=== PATIENT | female | born 1945 | race Caucasian/White ===

== ENCOUNTER 2016-09-01 17:30 | Emergency (ER) | payer OTHER, MEDICARE ==
[~2016-09-01] VITALS: Ht 152.4 cm; Wt 45.4 kg
[~2016-09-01 17:30] MED LIST: ALBUTEROL 3 ML3 ML INH; ALBUTEROL0.09 MG/A1 INH; ALENDRONATE SOD70 M2; AMBIEN 10MG10 MG PO; AMOX-CLAV 875-1 EACH PO; ATROVENT 0.02%2.5 ML INH; AUGMENTIN 875875 MG PO; BENZONATATE100 M1 PO; BENZONATATE100 MG PO; BUTALB-ACETAMI1 EACH PO; CALCIUM + D SO1 EACH PO; CENTRUM SILVER1 EAC3 PO; CLONAZEPAM2 M2 PO; CLONAZEPAM2 MG PO; COLACE100 MG PO; COUMADIN 3 MG TA3 MG PO; COUMADIN 5 MG TA5 MG PO; COUMADIN 6 MG TA6 MG PO; COUMADIN4 M1 PO; COUMADIN5 M2 PO; COUMADIN6 M1 PO; CYCLOBENZAPRINE10 M1 PO; DILAUDID2 M1 PO; FIORICET 325 MG1 TAB PO; FLUTICASONE PRO16 GM NASB; HYDROCODON-ACE1 EAC3 PO; HYDROCODONE/ACE1 TA2 PO; HYDROXYZINE HCL25 M2 PO; HYDROXYZINE HCL50 M1; HYDROXYZINE HCL50 M1 PO; IMITREX50 MG PO; K-TAB10 MEQ PO; KLONOPIN 1MG TAB1 MG PO; KLONOPIN0.5 MG PO; KLONOPIN1 M1 PO; LASIX20 MG PO; LEVOCETIRIZINE D5 M1 PO; LEXAPRO20 M1 PO; MEDROL4 M2 PO; MELATONIN 3 MG-1 TAB PO; MONTELUKAST SOD10 M1 PO; MOXIFLOXACIN H400 M1 PO; Mycostatin Susp PO; NARCAN4 MG NAS; NEXIUM 40MG40 MG PO; NORCO 10-325 T1 EACH PO; NORCO 7.5-3251 EACH PO; ONDANSETRON HCL4 MG PO; OXYCONTIN (MONO40 MG PO; OXYCONTIN15 M1 PO; OXYCONTIN20 M1 PO; OXYCONTIN30 MG PO; OXYCONTIN40 M1 PO; OXYCONTIN40 MG PO; PANTOPRAZOLE SO40 M1 PO; PERCOCET 325 MG1 TA2 PO; PHENERGAN PO; PHENERGAN12.5 M1 PO; PHENERGAN12.5 MG PR; POTASSIUM CHLO10 MEQ PO; PREDNISONE 20MG20 MG PO; PREDNISONE10 M2 PO; PREDNISONE10 MG PO; PRILOSEC 20MG C20 MG PO; PRILOSEC40 MG PO; PRISTIQ ER50 MG PO; PROBIOTIC FORMU1 CAP PO; PROBIOTIC1 EACH PO; PROMETHAZINE HC25 M3 PO; PROTONIX40 M3 PO; Q-TUSSIN100 MG/5 M PO; REGLAN10 MG PO; ROXICODONE30 MG PO; ROXICODONE5 MG PO; Robitussin PO; SENOKOT8.6 MG PO; SEROQUEL50 MG PO; SILENOR6 MG PO; SPIRIVA18 MCG INH; SYMBICORT 160/41 PUF INH; SYMBICORT 16010.2 GM INH; SYMBICORT1 AE1 INH; TRAMADOL HCL50 M1 PO; TRAZODONE HCL150 M1 PO; TRAZODONE HCL50 M1 PO; TRAZODONE100 MG PO; TRAZODONE150 MG PO; TRIAMCINOLONE A80 GM TOP; TYLENOL ARTHRI650 MG PO; TYLENOL XSTR500 MG PO; VITAMIN D31000 UNI1 PO; WARFARIN SODIUM1 M1 PO; ZITHROMAX250 M2 PO; ZOFRAN ODT4 MG PO; ZOLPIDEM TART10 MG PO; ZOLPIDEM TARTRAT5 MG PO; ZYVOX600 M1 PO; [UNRECOGNIZED DRUG - OTHER] PO
--- NOTE | 2016-09-01 17:37 | ED GENERAL ADULT ---
History of Present Illness General Chief Complaint: General Adult Stated Complaint: WITHDRAWAL Source: patient Exam Limitations: poor historian Reconcile Medications Budesonide/Formoterol Fumarate (Symbicort 160-4.5 Mcg Inhaler) 160 MCG-4.5 MCG/ ACTUATION HFA.AER.AD 2 PUF INH BID PRN COPD 2 PUFFS TWICE A DAY Buprenorphine HCl/Naloxone HCl (Suboxone 8 MG-2 MG Sl Film) 8 MG-2 MG FILM 1 STR SL DAILY PRN WITHDRAWAL SYMPTOMS SEVEN...[id number] Calcium Carb/Vitamin D3/Vit K1 (Calcium + D Soft Chewable Tab) (Unknown Strength ) TAB.CHEW (Unknown Dose) PO DAILY SUPPLEMENT (Reported) Cholecalciferol (Vitamin D3) (Vitamin D3) 1,000 UNIT CAPSULE 1 CAP PO DAILY SUPPLEMENT (Reported) Clonazepam 2 MG TABLET 1 TAB PO BID ANXIETY (Reported) Escitalopram Oxalate (Lexapro) 20 MG TABLET 1 TAB PO DAILY MENTAL HEALTH ( Reported) Fluticasone Propionate 50 MCG/ACTUATION SPRAY.SUSP 2 SPRAY NASB QPM ALLERGIES (Reported) Lactobacillus Acidophilus (Probiotic) (Unknown Strength) CAPSULE 1 CAP PO DAILY PROBIOTIC (Reported) Montelukast Sodium 10 MG TABLET 1 TAB PO DAILY ALLERGIES/RESPIRATORY ( Reported) Multivit-Min/FA/Lycopen/Lutein (Centrum Silver Tablet) 0.4 MG-300 MCG-250 MCG TABLET 1 TAB PO DAILY SUPPLEMENT (Reported) Pantoprazole Sodium 40 MG TABLET.DR 1 TAB PO DAILY GI (Reported) Warfarin Sodium (Coumadin) 6 MG TABLET 1 TAB PO DAILY BLOOD THINNER (Reported ) Triage Note: PER PT STOPPED TRAZADONE 3 DAYS AGO, UNCLEAR IF RAN OUT OR STOPPED IT CO NAUSEA, DIARRHEA RT BREAST PAIN, ALSO REPORTSD FALL 3 DAYS AGO NO LOC, NO HEAD STRIKE.ALSO REPORTS NOT EATING ETC PT WITH MULTIPLE CO Onset: Abrupt Duration: day(s): Timing: recent history HPI: 09/01/16 6:27 PM 70-year-old female presents to the emergency department for anxiety, right-sided rib pain, and lower lumbar pain. She said she fell 2 days ago. She also states she stopped taking her trazodone because it wasn't helping her. The onset of the symptoms were abrupt, the duration has been for 48 hours, the severity is significant as her symptoms required her to come to the emergency department for care (BENJAMIN PHAM DO) Vital Signs & Intake/Output Vital Signs & Intake/Output Vital Signs Date Time Temp Pulse Resp B/P B/P Pulse O2 O2 Flow FiO2 Mean Ox Delivery Rate 09/02 0100 97.2 76 20 138/68 96 Room Air 09/01 2120 97.6 73 20 156/74 95 Nasal 2.0L Cannula ED Intake and Output 09/02 0000 09/01 1200 Intake Total Output Total Balance Patient 99 lb 15.99 oz Weight Weight Reported by Patient Measurement Method Allergies Coded Allergies: tetracycline (Intermediate, RASH 01/02/16) Penicillins (Mild, RASH 01/02/16) PT. STATES NOT ALLERGIC "I WAS JUST ON PREDNISONE." Barbiturates (RASH, ITCHING 03/23/16) Corticosteroids (Glucocorticoids) (UNKNOWN PER PT 03/23/16) Sulfa (Sulfonamide Antibiotics) (D/T BLD DISEASE 01/02/16) aspirin (THROAT CLOSURE 01/02/16) barium iodide (deathly sick 01/02/16) buprenorphine (From BUTRANS) (RAPID HEART BEAT AND STOPPED BREATHING 09/01/16) cefazolin (UNKNOWN PER PT 03/23/16) chloramphenicol (D/T BLD DISEASE 01/02/16) cod liver oil (HIVES 01/02/16) ergot alkaloids (d/t bld Disease 01/02/16) griseofulvin (D/T BLD DISEASE 01/02/16) hydroxyzine (GAVE OPPOSITE EFFECT 03/23/16) lactulose (PER PT LACTOSE INTOLERANT 03/23/16) lorazepam (From ATIVAN) (NAUSEA 03/03/16) meprobamate (D/T BLD DISEASE 01/02/16) methyprylon (D/T BLD DISEASE 01/02/16) nifedipine (UNKNOWN PER PT 03/23/16) PT STATES I DONT THINK I'M ALLERGIC TO THIS phentolamine (SHOCK 01/02/16) phenytoin (D/T BLD DISEASE 01/02/16) prazosin (UNKNOWN PER PT 03/23/16) promethazine (From PHENERGAN) (MORE NAUSEATED 09/01/16) thiopental (UNKNOWN PER PT 03/23/16) tolbutamide (From ORINASE) (DUE TO BLOOD DISEASE 01/02/16) hydromorphone (From DILAUDID) (Intermediate, DIZZY, N/V 01/02/16) baclofen (JITTERY AND "SICK" 01/02/16) bisacodyl (ABDOMINAL PAIN 01/02/16) bupropion (NAUSEA/VOMITING 01/02/16) calcitonin (NAUSEA/VOMITING 01/02/16) clarithromycin (NAUSEA/vomiting 01/02/16) clindamycin (NAUSEA/VOMITING 01/02/16) codeine (GI DISTRESS 01/02/16) desloratadine (NAUSEA/VOMITING 01/02/16) duloxetine (NAUSEA/VOMITING 01/02/16) estradiol (NAUSEA/VOMITING 01/02/16) "NEVER HEARD OF THAT" fluoxetine (HALLUCINATIONS 01/02/16) iron (CONSTIPATION 01/02/16) levofloxacin (NAUSEA/VOMITING 01/02/16) loratadine (GI DISTRESS 01/02/16) methadone (GI DISTRESS 01/02/16) methylphenidate (NAUSEA/VOMITING 01/02/16) phenoxybenzamine (gi upset 01/02/16) pregabalin (NAUSEA/VOMITING 01/02/16) pseudoephedrine (GI DISTRESS 01/02/16) quinine (NAUSEA/VOMITING 01/02/16) tegaserod (From ZELNORM) (NAUSEA/VOMITING 01/02/16) Uncoded Allergies: ISOPROPYLINE (Mild, CANNOT HAVE SECONDARY TO BLOOD DISEASE 12/07/11) MESOTIN NOLUDAR (Mild, NAUSEA 12/07/11) PAYOTN (JITTERY 12/05/15) Triage Nurses Notes Reviewed? yes (NANCI SINGLETON,MARIO Matt) Past History Travel History Traveled to [place] past 21 day No Medical History Any Pertinent Medical History? see below for history Neurological: migraine EENT: allergies Cardiovascular: DVT PE Respiratory: COPD Gastrointestinal: NONE Hepatic: NONE Renal: NONE Musculoskeletal: fracture, osteoporosis, CHRONIC BACK PAIN SCOLIOSIS Psychiatric: anxiety, depression Endocrine: osteoporosis Blood Disorders: NONE Cancer(s): NONE MINE EXPERT/Reproductive: NONE History of MRSA: No History of VRE: No History of CDIFF: No Surgical History Surgical History: appendectomy Psychosocial History Who do you live with Patient/Self Services at Home Nursing, Oxygen What is your primary language Uzbek Tobacco Use: Never used Family History Family History, If Any: MOTHER SISTER Relation not specified for: FH: cancer FH: diabetes mellitus Hx Contributory? No (BENJAMIN PHAM DO) Review of Systems Review of Systems Constitutional: Denies: fever. EENTM: Reports: no symptoms. Respiratory: Denies: short of breath. Cardiovascular: Reports: see HPI. GI: Denies: abdominal pain. Genitourinary: Reports: no symptoms. Musculoskeletal: Reports: see HPI. Skin: Denies: rash. Neurological/Psychological: Denies: headache. Hematologic/Endocrine: Denies: bruising, bleeding. (BENJAMIN PHAM DO) Physical Exam Physical Exam General Appearance: alert, awake, anxious, cachetic, moderate distress Head: atraumatic, normal appearance Eyes: Bilateral: normal appearance, PERRL, EOMI. Ears, Nose, Throat: normal ENT inspection Neck: normal inspection, supple Respiratory: decreased breath sounds, RIGHT SUBCOSTAL PAIN Cardiovascular: regular rate/rhythm Peripheral Pulses: 4+ radial (R), 4+ radial (L) Gastrointestinal: soft, non-tender Back: decreased range of motion, TENDER LUMBAR Extremities: normal inspection, no edema Neurologic/Psych: no motor/sensory deficits, awake, alert, oriented x 3, TREMORS Skin: intact, normal color, warm/dry (BENJAMIN PHAM DO) Core Measures ACS in differential dx? No CVA/TIA Diagnosis: No Severe Sepsis Present: No Septic Shock Present: No (NANCI SINGLETON,MARIO Matt) Progress Differential Diagnoses I considered the following diagnoses in my evaluation of the patient: [Rib fracture, lumbar compression fracture, narcotic withdrawal, anxiety, acute coronary syndrome,] Initial ED EKG: NSR, nonspecific ST T wave chg Prior EKG: unchanged (BENJAMIN PHAM DO) Plan of Care: Laboratory Tests 09/01/16 1845: Anion Gap 15, Estimated GFR > 60, BUN/Creatinine Ratio 18.0, Glucose 102 H, Calcium 9.7, Total Bilirubin 1.1, AST 21, ALT 25, Alkaline Phosphatase 52, Troponin I < 0.01, Total Protein 7.6, Albumin 4.7, Globulin 2.9, Albumin/ Globulin Ratio 1.6, D-Dimer < 200, CBC w Diff NO MAN DIFF REQ, RBC 4.25, MCV 85.9, MCH 28.3, RDW 17.3 H, MPV 8.3, Gran % 76.7 H, Lymphocytes % 18.4 L, Monocytes % 4.3, Eosinophils % 0.1, Basophils % 0.5, Absolute Granulocytes 4.3, Absolute Lymphocytes 1.0 L, Absolute Monocytes 0.2, Absolute Eosinophils 0, Absolute Basophils 0, PUBS MCHC 32.9 L Diagnostic Imaging: Viewed by Me: CT Scan. Discussed w/RAD: CT Scan. Radiology Impression: chest ct - nodules, emphysema. no acute fx/changes, ls ct... spinal stenosis... no acute change... full report below. Comments: PATIENT: GELY TAM PRESENT AGE: 70 PATIENT ACCOUNT NO: [id number] : 44 LOCATION: [facility] ORDERING PHYSICIAN: BENJAMIN PHAM DO SERVICE DATE: 09/01/16 EXAM TYPE: CAT - CT LUMB SPINE WO IV CONTRAST EXAMINATION: CT LUMBAR SPINE WITHOUT CONTRAST CLINICAL INFORMATION: Back pain status post fall. COMPARISON: Lumbar spine radiographs 01/02/2016. TECHNIQUE: Helical non-contrast CT images were obtained through the lumbar spine and 1.25 and 2.5 mm axial reconstructions were reviewed along with sagittal and coronal MPRs. DLP: 172.48 mGy-cm FINDINGS: There is spinal scoliosis with a pronounced leftward convex curvature at the thoracolumbar junction. There is grade 1 anterolisthesis of L5 on S1 related to advanced facet degenerative changes at this level. There is stable biconcave compression deformities at multiple levels within the lumbar spine with vertebral augmentation changes at L3. There is chronic interbody osseous union at L5-S1. There is chronic retropulsion of the posterior cortex at L3 causing indentation of the ventral thecal sac. The canal is not well assessed at this level. At L4-L5 there is a diffuse annular bulge/pseudobulge causing ventral flattening of the thecal sac. There is advanced bilateral facet degenerative change at this level causing dorsolateral indentation of the thecal sac. Although the canal is not well assessed is felt that there is severe canal stenosis at this level. Moderate to severe bilateral neuroforaminal encroachment at L4-L5. Limited visualization of the retroperitoneal structures demonstrates heavily calcified atheromatous plaque of the abdominal aorta and iliac vessels. An inferior vena cava filter is noted. IMPRESSION: There is spinal scoliosis with a pronounced leftward convex curvature at the thoracolumbar junction. Grade 1 anterolisthesis of L5 on S1. Although the canal is not well assessed on this examination due to the absence of intrathecal contrast it is felt that there is severe canal stenosis at L4-L5 related to multifactorial degenerative changes. There is moderate to severe compression of the foraminal segments of both L4 nerve roots at this level. Grossly no evidence of acute fracture. DICTATED BY: KALYANI SPEARS MD DATE/TIME DICTATED:09/01/162030 FLAT FINISHER:MARY DATE/TIME TRANSCRIBED:09/01/162030 CONFIDENTIAL, DO NOT COPY WITHOUT APPROPRIATE AUTHORIZATION. <Electronically signed in Other Vendor System> SIGNED BY: KALYANI SPEARS MD 09/01 PATIENT: GELY TAM PRESENT AGE: 70 PATIENT ACCOUNT NO: [id number] : 44 LOCATION: [facility] ORDERING PHYSICIAN: BENJAMIN PHAM DO SERVICE DATE: 09/01/16 EXAM TYPE: CAT - CT CHEST WO IV CONTRAST EXAMINATION: CT CHEST WITHOUT CONTRAST CLINICAL INFORMATION: Chest pain following fall. COMPARISON: Chest x-ray 03/03/2016. TECHNIQUE: Multidetector volumetric CT imaging of the chest was done. Axial MIP volume rendering provided. Sagittal and coronal reformatted images were obtained. DLP: 185 mGy-cm FINDINGS: TOUR AGENT: Automatic Vulcanizing Operator views of the chest demonstrate symmetric pulmonary expansion. LUNGS: Evaluation of the lung parenchyma demonstrates severe centrilobular emphysematous changes. No focal airspace consolidation is identified. There are multiple punctate calcified and noncalcified subcentimeter pulmonary nodules scattered throughout the bilateral lungs, visualized measuring 1-2 mm. No suspicious pulmonary masses are identified. The central airways are patent, without endobronchial obstructing lesions. MEDIASTINUM: Normal heart size, without significant pericardial effusion. Bovine configuration of the aortic arch. Scattered atherosclerosis of the thoracic aorta and scattered coronary artery calcifications. PLEURA: No pleural effusions or pneumothoraces. AXILLA: No significant axillary adenopathy. UPPER ABDOMEN: No acute findings within the upper abdomen. There is a partially visualized IVC filter. There is also scattered atherosclerosis of the abdominal aorta. OSSEOUS STRUCTURES: Demineralization of the visualized bones. Mechanical hardware related to anterior cervical discectomy and fusion of the lower cervicothoracic spine. No visible destructive osseous lesions. Partially visualized chronic compression deformity involving the L3 vertebral body with evidence of prior vertebroplasty. There are also chronic appearing compression deformities involving the T4 and L2 vertebral bodies. No acute displaced bilateral rib fractures. IMPRESSION: 1. Multiple punctate calcified and noncalcified subcentimeter pulmonary nodules scattered throughout the bilateral lungs, measuring 1 to 2 mm. These nodules are entirely nonspecific. Recommend attention on follow-up imaging per Fleischner Society guidelines, as detailed below. 2. Severe bilateral centrilobular emphysema. 3. No acute osseous abnormality. Mechanical hardware related to anterior cervical discectomy and fusion of the lower cervical thoracic spine without visible fracture or subluxation. Chronic appearing compression deformities involving the T4 and L2 vertebral bodies. No acute rib fractures are identified. Various management parameters for multiple pulmonary nodules are in the literature. According to the Fleischner Society, recommendations for pulmonary nodules are as follows: Nodule size < 6 mm in LOW RISK PATIENTS: No follow up needed. Nodule size < 6 mm in HIGH RISK PATIENTS: Follow up CT at 12 months. DICTATED BY: ROLANDO WILLAMS MD DATE/TIME DICTATED:09/01/162032 FLAT FINISHER:MARY DATE/TIME TRANSCRIBED:09/01/162032 CONFIDENTIAL, DO NOT COPY WITHOUT APPROPRIATE AUTHORIZATION. <Electronically signed in Other Vendor System> SIGNED BY: ROLANDO WILLAMS MD 09/01/162047 (NANCI SINGLETON,MARIO Matt) Departure Departure Disposition: STILL A PATIENT Condition: Stable Clinical Impression Primary Impression: Back pain Referrals: IRENE SINGLETON,LEONA Cervantes Departure Forms: Customer Survey General Discharge Information Comments The patient was signed out to Dr. Pereyra at 7 PM, pending CT of the chest and lumbar spine and lab results. (BENJAMIN PHAM DO) Departure Prescriptions: Current Visit Scripts Buprenorphine HCl/Naloxone HCl (Suboxone 8 MG-2 MG Sl Film) 1 STR SL DAILY PRN WITHDRAWAL SYMPTOMS #7 STR SEVEN...[id number] Comments 09/01/16, 21:49... pt asking for suboxone for detox from opioids and tramadol... pt has follow up at [facility] suboxone clinic... Pt is in active withdrawal... suboxone ordered for ED... rx for suboxone to her pharmacy... close follow up advised. - - - pt feels better after suboxone 8mg sl x 2... pt will follow up with the [facility] suboxone clinic. (NANCI SINGLETON,MARIO Matt) Critical Care Note Critical Care Note Critical Care Time: non-applicable (BENJAMIN PHAM DO) suboxone ordered for ED... rx for suboxone to her pharmacy... close follow up advised. - - - pt feels better after suboxone 8mg sl x 2... pt will follow up with the [facility] suboxone clinic. (NANCI SINGLETON,MARIO Matt) Critical Care Note Critical Care Note Critical Care Time: non-applicable (BENJAMIN PHAM DO)
[2016-09-01] MEDS ORDERED: PANTOPRAZOLE SO40 M1 PO (18:58)
[2016-09-01 19:04] LABS: ABSOLUTE BASOPHIL COUNT 0 /CUMM (0.0-0.2); ABSOLUTE EOSINOPHIL COUNT 0 /CUMM (0.0-0.7); ABSOLUTE GRANULOCYTE CT 4.3 /CUMM (1.4-6.5); ABSOLUTE MONOCYTE COUNT 0.2 /CUMM (0.10-0.60); BASOPHIL % 0.5 % (0.0-2.0); EOSINOPHIL % 0.1 % (0-5); GRANULOCYTE % 76.7 % (42.2-75.2); HEMATOCRIT 36.5 % (37-47); MEAN CORPUSCULAR HGB 28.3 PG (27.0-31.0); MEAN CORPUSCULAR HGB CONC 32.9 G/DL (33.0-37.0); MEAN CORPUSCULAR VOLUME 85.9 FL (81.0-99.0); MEAN PLATELET VOLUME 8.3 FL (7.4-10.4); PLATELET COUNT 307 /CUMM (130-400); RBC DISTRIBUTION WIDTH 17.3 % (11.5-14.5); RED BLOOD CELL CT 4.25 /CUMM (4.20-5.40); WHITE BLOOD CELL COUNT 5.7 /CUMM (4.8-10.8)
--- NOTE | 2016-09-01 20:44 | CT SCAN REPORT ---
EXAMINATION: CT LUMBAR SPINE WITHOUT CONTRAST CLINICAL INFORMATION: Back pain status post fall. COMPARISON: Lumbar spine radiographs 01/02/2016. TECHNIQUE: Helical non-contrast CT images were obtained through the lumbar spine and 1.25 and 2.5 mm axial reconstructions were reviewed along with sagittal and coronal MPRs. DLP: 172.48 mGy-cm FINDINGS: There is spinal scoliosis with a pronounced leftward convex curvature at the thoracolumbar junction. There is grade 1 anterolisthesis of L5 on S1 related to advanced facet degenerative changes at this level. There is stable biconcave compression deformities at multiple levels within the lumbar spine with vertebral augmentation changes at L3. There is chronic interbody osseous union at L5-S1. There is chronic retropulsion of the posterior cortex at L3 causing indentation of the ventral thecal sac. The canal is not well assessed at this level. At L4-L5 there is a diffuse annular bulge/pseudobulge causing ventral flattening of the thecal sac. There is advanced bilateral facet degenerative change at this level causing dorsolateral indentation of the thecal sac. Although the canal is not well assessed is felt that there is severe canal stenosis at this level. Moderate to severe bilateral neuroforaminal encroachment at L4-L5. Limited visualization of the retroperitoneal structures demonstrates heavily calcified atheromatous plaque of the abdominal aorta and iliac vessels. An inferior vena cava filter is noted. IMPRESSION: There is spinal scoliosis with a pronounced leftward convex curvature at the thoracolumbar junction. Grade 1 anterolisthesis of L5 on S1. Although the canal is not well assessed on this examination due to the absence of intrathecal contrast it is felt that there is severe canal stenosis at L4-L5 related to multifactorial degenerative changes. There is moderate to severe compression of the foraminal segments of both L4 nerve roots at this level. Grossly no evidence of acute fracture.
--- NOTE | 2016-09-01 20:48 | CT SCAN REPORT ---
EXAMINATION: CT CHEST WITHOUT CONTRAST CLINICAL INFORMATION: Chest pain following fall. COMPARISON: Chest x-ray 03/03/2016. TECHNIQUE: Multidetector volumetric CT imaging of the chest was done. Axial MIP volume rendering provided. Sagittal and coronal reformatted images were obtained. DLP: 185 mGy-cm FINDINGS: SALES TECHNICIAN: Net Wpf Developer views of the chest demonstrate symmetric pulmonary expansion. LUNGS: Evaluation of the lung parenchyma demonstrates severe centrilobular emphysematous changes. No focal airspace consolidation is identified. There are multiple punctate calcified and noncalcified subcentimeter pulmonary nodules scattered throughout the bilateral lungs, visualized measuring 1-2 mm. No suspicious pulmonary masses are identified. The central airways are patent, without endobronchial obstructing lesions. MEDIASTINUM: Normal heart size, without significant pericardial effusion. Bovine configuration of the aortic arch. Scattered atherosclerosis of the thoracic aorta and scattered coronary artery calcifications. PLEURA: No pleural effusions or pneumothoraces. AXILLA: No significant axillary adenopathy. UPPER ABDOMEN: No acute findings within the upper abdomen. There is a partially visualized IVC filter. There is also scattered atherosclerosis of the abdominal aorta. OSSEOUS STRUCTURES: Demineralization of the visualized bones. Mechanical hardware related to anterior cervical discectomy and fusion of the lower cervicothoracic spine. No visible destructive osseous lesions. Partially visualized chronic compression deformity involving the L3 vertebral body with evidence of prior vertebroplasty. There are also chronic appearing compression deformities involving the T4 and L2 vertebral bodies. No acute displaced bilateral rib fractures. IMPRESSION: 1. Multiple punctate calcified and noncalcified subcentimeter pulmonary nodules scattered throughout the bilateral lungs, measuring 1 to 2 mm. These nodules are entirely nonspecific. Recommend attention on follow-up imaging per Fleischner Society guidelines, as detailed below. 2. Severe bilateral centrilobular emphysema. 3. No acute osseous abnormality. Mechanical hardware related to anterior cervical discectomy and fusion of the lower cervical thoracic spine without visible fracture or subluxation. Chronic appearing compression deformities involving the T4 and L2 vertebral bodies. No acute rib fractures are identified. Various management parameters for multiple pulmonary nodules are in the literature. According to the Fleischner Society, recommendations for pulmonary nodules are as follows: Nodule size < 6 mm in LOW RISK PATIENTS: No follow up needed. Nodule size < 6 mm in HIGH RISK PATIENTS: Follow up CT at 12 months.
[2016-09-01] MEDS ORDERED: SUBOXONE 8 MG-1 EACH SL (21:37)
[2016-09-02 01:00] VITALS: BP 138/68
== END 2016-09-02 01:35 ==
LOC: ERH 17:30
PROVIDERS: Emergency Medicine
DX: M54.5 Low back pain (principal)
CPT/HCPCS: 93005; 93010; J0574; J3101